=== PATIENT | male | born 1970 | race Caucasian/White ===

== ENCOUNTER 2022-06-05 12:29 | Emergency (ER) | payer OTHER, SELFPAY ==
[2022-06-05] VITALS (14 sets, daily range): BP systolic 133–176; BP diastolic 80–93; PULSE 64–73; RESP 11–21; TEMP 36.3; O2SAT 95–100
--- NOTE | ~2022-06-05 | XR_ITS ---
EXAMINATION: XR chest 2V DATE: 06/05/2022 12:46 INDICATION: Right-sided chest pain. Dizziness. Vomiting. TECHNIQUE: Frontal and lateral views of the chest were obtained on 3 radiographs. COMPARISON: None. FINDINGS: The chest demonstrates clear lungs without pneumonia, pleural effusion, or pneumothorax. Th e heart size is normal. IMPRESSION: 1. No acute cardiopulmonary disease. Reviewed, dictated and finalized at location A.
--- NOTE | 2022-06-05 12:30 | ECG_ITS ---
Measurements Intervals Crane Rate: 71 P: 64 LA: 159 QRS: 15 QRSD: 90 T: 51 QT: 420 QTc: 457 Interpretive Statements SINUS RHYTHM WITH OCCASIONAL SUPRAVENTRICULAR PREMATURE COMPLEXES BORDERLINE ECG NO PREVIOUS ECG AVAILABLE FOR COMPARISON Electronically Signed On 06-05-2022 14:18:56 CDT by Keith Daniel M.D.
[2022-06-05 13:01] LABS: Basophils Percent Auto 0.4 % (0.2-1.2); Eosinophils Absolute Auto 0.2 K/mm3 (0-0.3); Eosinophils Percent Auto 2.3 % (0-4.4); Hematocrit 45.1 % (42.0-52.0); Hemoglobin 15.2 g/dL (14.0-18.0); Immature Granulocyte Absolute 0.01 K/mm3 (0.00-0.031); Immature Granulocyte Percent A 0.1 % (0-0.5); Lymphocytes Absolute Auto 3.21 K/mm3 (0.9-3.2); Lymphocytes Percent Auto 34.3 % (18.3-44.2); Mean Corpuscular HGB Conc 33.7 g/dl (32-36); Mean Corpuscular Hemoglobin 30.3 pg (26-34); Mean Platelet Volume 10.7 fl (7.4-10.4); Monocytes Absolute Auto 0.9 K/mm3 (0.1-0.6); Monocytes Percent Auto 9.5 % (2.6-8.5); Neutrophils Percent Auto 53.4 % (45.5-73.1); Platelet Count Result 310 k/mm3 (150-375); Red Blood Count 5.01 M/mm3 (4.6-6.20); Red Cell Distribution Width 13.5 % (11.5-14.5); White Blood Count 9.4 K/mm3 (4.5-10.0)
[2022-06-05 13:10] LABS: INR 0.9; Partial Thromboplastin Time 25.2 SECONDS (22.3-36.8); Prothrombin Time 11.9 Seconds (11.1-14.7)
[2022-06-05 13:17] LABS: Alanine Aminotransferase 30 U/L (6-50); Albumin Level 4.7 g/dL (3.5-5.1); Alkaline Phosphatase 99 U/L (38-126); Anion Gap 14 mmol/L (8-16); Aspartate Amino Transferase 33 U/L (17-59); Bilirubin,Total 0.5 mg/dL (0.2-1.3); Blood Urea Nitrogen 12 mg/dL (9-20); Calcium 9.2 mg/dL (8.4-10.2); Carbon Dioxide 22 mmol/L (22-30); Chloride 104 mmol/L (98-107); Estimated Glomerular Filt Rate > 60; Glucose 118 mg/dL (65-110); Lipase 83 U/L (23-300); Potassium 3.4 mmol/L (3.4-5.0); Sodium 140 mmol/L (137-145)
[2022-06-05 13:28] LABS: Troponin I < 0.012 ng/mL (0.000-0.034)
[2022-06-05] MEDS: ASPIRIN 81 MG CHEWABLE TABLET 324 MG PO (13:35)
--- NOTE | 2022-06-05 13:51 | ED.CHESTPAIN ---
HPI - Chest Pain General Chief Complaint: Chest Pain Stated Complaint: cp, dizzy, emesis, light headed Time Seen by Provider: 06/05/22 13:47 History of Present Illness HPI narrative: pt says driving and sharp right sided cp felt lt headed shakey and clamy says gone in minutes all started around noon never had before. home covid test neg last night for sniffles which was neg and no f/uri/sniffles today no n/v/d/abd pain/[place]/neuro chages/loc/trauma takes chol medication only cardiac risk factor Related Data Allergies Allergy/AdvReac Type Severity Reaction Status Date / Time No Known Allergies Allergy Verified 06/05/22 12:35 Review of Systems Constitutional: Comments: CONSTITUTIONAL: Denies fever, chills, had sweats. EYES: Denies visual changes, redness, or discharge. ENT: Denies rhinorrhea, congestion, sore throat, or otalgia. CARDIOVASCULAR: had chest pain,no palpitations, or edema. RESPIRATORY: Denies cough or dyspnea. GASTROINTESTINAL: Denies abdominal pain, nausea, vomiting, or diarrhea. GENITOURINARY: Denies dysuria or hematuria. SKIN: Denies rash or itching. MUSCULOSKELETAL: Denies back pain, joint pain, or myalgia. NEUROLOGIC: Denies headache, numbness, or weakness. PSYCHIATRIC: Denies anxiety or depression. Exam Const: Other: APPEARANCE: Well appearing, no pain in distress, well-nourished. Head normocephalic atraumtaic. EYES: PERRLA/EOMI, conjunctivae very clear. NOSE: Normal no drainage EARS:TMS clear Celio Vogt, with good light reflex. THROAT: Pharynx clear, no exudate. NECK: Supple. No adenopathy, no masses. RESPIRATORY: Airway patent, repsirations nonlabored. Clear to auscultation bilaterally, no rales, rhonchi, wheezing. CARDIOVASCULAR: Regular rate and rhythm without murmurs rubs or gallops. ABDOMINAL: Soft, nontender, nondistended, no hepatosplenomegally MUSCULOSKELETAl: Moves all extremities. Strenght/ROM intact, No edema, No calf tenderness. NEURO: Alert. Cranial nerves II through XII intact. Good gait. Good coordination SKIN:: Warm, dry. Normal Color PSYCHIATRIC: Normal affect/mood, normal interaction with parents. 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 however I have no idea if would cover or not so pt can eat/drink and fine with staying for second trop and if ok will d/c Vital Signs Vital signs: Vital Signs Temperature 36.3 C L 06/05/22 12:29 Pulse Rate 72 06/05/22 12:29 Respiratory Rate 14 06/05/22 12:29 Blood Pressure 145/93 H 06/05/22 12:29 Pulse Oximetry 98 06/05/22 12:29 Oxygen Delivery Room Air 06/05/22 12:29 Temperature 36.3 C L 06/05/22 12:29 Pulse Rate 73 06/05/22 14:33 Respiratory Rate 19 06/05/22 14:33 Blood Pressure 176/91 H 06/05/22 14:33 Pulse Oximetry 99 06/05/22 14:33 Oxygen Delivery Room Air 06/05/22 14:45 MDM - Chest Pain Lab Data Result diagrams: 06/05/22 12:50 06/05/22 12:50 Labs: Lab Results 06/05/22 06/05/22 06/05/22 Range/Units 12:50 12:50 12:50 WBC 9.4 (4.5-10.0) K/mm3 RBC 5.01 (4.6-6.20) M/mm3 Hgb 15.2 (14.0-18.0) g/dL Hct 45.1 (42.0-52.0) % MCV 90.0 (80-100) fl MCH 30.3 (26-34) pg MCHC 33.7 (32-36) g/dl RDW 13.5 (11.5-14.5) % Plt Count 310 (150-375) k/mm3 MPV 10.7 H (7.4-10.4) fl Immature Gran % (Auto) 0.1 (0-0.5) % Neut % (Auto) 53.4 (45.5-73.1) % Lymph % (Auto) 34.3 (18.3-44.2) % Meigs % (Auto) 9.5 H (2.6-8.5) % Eos % (Auto) 2.3 (0-4.4) % Baso % (Auto) 0.4 (0.2-1.2) % Lymph # (Auto) 3.21 H (0.9-3.2) K/mm3 Meigs # (Auto) 0.9 H (0.1-0.6) K/mm3 Eos # (Auto) 0.2 (0-0.3) K/mm3 Baso # (Auto) 0.0 (0.0-0.1) K/mm3 Abs Immat Gran (auto) 0.01 (0.00-0.031) K/mm3 Absolute
[2022-06-05 16:06] LABS: Troponin I < 0.012 ng/mL (0.000-0.034)
== END 2022-06-05 16:52 | disposition home or self-care (01) ==
PROVIDERS: Emergency Medicine; Emergency Provider Emergency Medicine
DX: R07.9 Chest pain, unspecified (principal)
CPT/HCPCS: 36415; 71046; 80053; 83690; 84484; 85025; 85610; 85730; 93005; 99284; A9270